=== PATIENT | female | born 1955 | race Two or more races ===

== ENCOUNTER 2019-01-02 08:17 | Outpatient (CLI) | payer OTHER | END 2019-01-02 11:11 | disposition home or self-care (01) | LOC: SONOGRAMA 08:17 | DX: E04.2 Nontoxic multinodular goiter (principal) ==

== ENCOUNTER 2020-07-05 11:01 | Outpatient (CLI) | payer OTHER | END 2020-07-05 11:04 | disposition home or self-care (01) | LOC: SONOGRAMA 11:01 | PROVIDERS: ATTEND Pathology Anatomic Pathology & Clinical Pathology | DX: E04.1 Nontoxic single thyroid nodule (principal) ==

== ENCOUNTER 2021-09-02 21:37 | Emergency (ER) | payer OTHER ==
[~2021-09-02] VITALS: Ht 157.5 cm; Wt 86.2 kg
[2021-09-02] MEDS ORDERED: ZIAC 2.5-6.251 EACH (21:56)
[2021-09-02] MEDS ORDERED: LEVOTHYROXINE25 MCG (21:56)
== END 2021-09-02 23:55 | disposition home or self-care (01) ==
LOC: ER 21:37
DX: R21 Rash and other nonspecific skin eruption (principal); I10 Essential (primary) hypertension

== ENCOUNTER 2021-12-10 07:32 | Emergency (ER) | payer OTHER ==
[~2021-12-10] VITALS: Ht 157.5 cm; Wt 84.4 kg
[~2021-12-10 07:32] MED LIST: LEVOTHYROXINE25 MCG; ZIAC 2.5-6.251 EACH
== END 2021-12-10 17:39 | disposition home or self-care (01) ==
LOC: ER 07:32
DX: K57.32 Diverticulitis of large intestine without perforation or abscess without bleeding (principal); K62.5 Hemorrhage of anus and rectum; I10 Essential (primary) hypertension; K44.9 Diaphragmatic hernia without obstruction or gangrene; K52.9 Noninfective gastroenteritis and colitis, unspecified

== ENCOUNTER 2025-01-11 12:13 | Emergency (ER) | payer OTHER ==
[~2025-01-11] VITALS: Ht 157.5 cm; Wt 88.9 kg
[2025-01-11] MEDS ORDERED: COZAAR50 MG PO (13:09)
[2025-01-11] MEDS ORDERED: NORVASC5 MG PO (13:09)
[2025-01-11] MEDS ORDERED: DEXAMETHASONE SODIUM PHOSPHATE 4 MG/ML VIAL ONE (13:22)
[2025-01-11] MEDS ORDERED: ORPHENADRINE CITRATE 30 MG/ML AMPUL ONE (13:22)
[2025-01-11] MEDS ORDERED: KETOROLAC TROMETHAMINE 60 MG VIAL IM ONE ×2 (13:22→13:30)
[2025-01-11] MEDS ORDERED: KETO10TA2 PO (13:25)
[2025-01-11] MEDS ORDERED: PEPCID AC20 MG PO (13:25)
[2025-01-11] MEDS ORDERED: NORFLEX100MG PO (13:25)
[2025-01-11] MEDS ORDERED: DEXAMETHASONE SODIUM PHOSPHATE 4 MG/ML VIAL IM ONE (13:30)
[2025-01-11] MEDS ORDERED: ORPHENADRINE CITRATE 30 MG/ML AMPUL IM ONE (13:30)
== END 2025-01-11 13:45 | disposition home or self-care (01) ==
LOC: ER 12:14
DX: M54.16 Radiculopathy, lumbar region (principal)
CPT/HCPCS: 96372; 99282; J1100; J1885; J2360